=== PATIENT | male | born 1960 | race Caucasian/White ===

== ENCOUNTER 2020-12-30 15:17 | Observation (INO) ==
[2020-12-30] MEDS ORDERED: GLUCAGON 1 MG VIAL IM PRN (19:53)
[2020-12-30] MEDS ORDERED: DEXTROSE 50% 25 GM/50 ML VIAL IV PRN (19:53)
[2020-12-30 20:31] LABS: Basophils # 0.1 10*3/uL (0.0-0.2); Basophils % 0.5 % (0.0-0.8); Eosinophils # 0.8 10*3/uL (0.0-0.87); Eosinophils % 8.7 % (0.00-10.9); Hematocrit 39.5 VOL% (42.0-52.0); Hemoglobin 12.7 GM/DL (14.0-18.0); Immature Granulocytes % 0.2 %; Immature Granulocytes Absolute 0.02 #; Lymphocytes # 1.9 10*3/uL (1.4-4.0); Lymphocytes % 20.8 % (21.2-54.2); Mean Corpuscular HGB Conc 32.2 GM/DL (32-36); Mean Corpuscular Volume 87.8 FL (87-102); Mean Platelet Volume 9.9 FL (9.6-12.0); Monocytes % 6.5 % (1.7-12.7); Neutrophils % 63.3 % (38.7-73.9); Platelet Count 187 T/CUMM (130-400); White Blood Count 9.2 T/CUMM (4-12)
[2020-12-30 20:42] LABS: PT Patient Result 10.3 SECS (9.8-11.9)
[2020-12-30 20:49] LABS: Albumin 2.8 G/DL (3.4-5.0); Bilirubin,Total 0.6 MG/DL (0.2-1.0); Calcium 8.2 MG/DL (8.5-10.1); Osmolality,Calculated 291.5 MOS/KG (273-304); Potassium 4.8 MMOL/L (3.5-5.1); Total Protein 6.2 G/DL (6.4-8.2)
[2020-12-30] MEDS: LACTATED RINGERS 1,000 ML IV SCH (21:45)
[2020-12-30] MEDS: cefTRIAXone 1,000 MG in SYRINGE 1 EACH IV SCH (21:46)
[2020-12-30] MEDS: hydrALAZINE 25 MG TABLET PO SCH (21:46)
[2020-12-30] MEDS: ENOXAPARIN 30 MG/0.3 ML SYRINGE SUBCUT SCH (21:46)
[2020-12-30] MEDS: glipiZIDE 10 MG TABLET PO SCH (21:46)
[2020-12-30] MEDS: PANTOPRAZOLE 40 MG TABLET PO SCH (21:56)
[2020-12-30 23:57] LABS: Bacteria,Urine Occasional /HPF (Few); Bilirubin,Urine Negative (Negative); Blood, Urine Small mg/dL (Negative); Glucose,Urine (UA) >=500 mg/dL (Negative); Ketones,Urine Negative (Negative); Nitrite,Urine Negative (Negative); Protein,Urine 100 MG/DL; RBC,Urine 10 /HPF (0-4); Urine Appearance Slightly Hazy (Clear); Urine Color Yellow (Yellow); Urine Specific Gravity 1.009 (1.001-1.035); Urine Urobilinogen < 2.0 EU/DL (0.2-1.0); WBC,Urine 32 /HPF (0-6)
[2020-12-31] MEDS: INSULIN REGULAR 100 UNIT/ML SUBCUT SCH ×4 (00:34→17:38)
[2020-12-31 02:23] LABS: Basophils # 0.1 10*3/uL (0.0-0.2); Basophils % 0.7 % (0.0-0.8); Eosinophils # 0.7 10*3/uL (0.0-0.87); Eosinophils % 10.2 % (0.00-10.9); Hematocrit 37.2 VOL% (42.0-52.0); Hemoglobin 12.2 GM/DL (14.0-18.0); Immature Granulocytes % 0.3 %; Immature Granulocytes Absolute 0.02 #; Lymphocytes # 1.8 10*3/uL (1.4-4.0); Lymphocytes % 24.9 % (21.2-54.2); Mean Corpuscular HGB Conc 32.8 GM/DL (32-36); Mean Corpuscular Volume 87.1 FL (87-102); Mean Platelet Volume 10.4 FL (9.6-12.0); Monocytes % 7.7 % (1.7-12.7); Neutrophils % 56.2 % (38.7-73.9); Platelet Count 167 T/CUMM (130-400); Red Blood Count 4.27 MC/CUMM (3.8-5.5); Red Cell Distribution Width 13.9 % (9.3-17.3); White Blood Count 7.2 T/CUMM (4-12)
[2020-12-31 02:51] LABS: Albumin 2.6 G/DL (3.4-5.0); Bilirubin,Total 0.5 MG/DL (0.2-1.0); Calcium 8.3 MG/DL (8.5-10.1); Osmolality,Calculated 292.1 MOS/KG (273-304); Potassium 5.2 MMOL/L (3.5-5.1); Total Protein 5.8 G/DL (6.4-8.2)
[2020-12-31 02:52] LABS: Troponin I 0.845 NG/ML (0.00-0.045)
[2020-12-31] MEDS: LACTATED RINGERS 1,000 ML IV SCH ×3 (05:34→19:45)
[2020-12-31 05:53] LABS: Troponin I 0.877 NG/ML (0.00-0.045)
[2020-12-31 05:54] LABS: Risk Ratio 5.94; VLDL CHOLESTEROL 44.8 MG/DL
[2020-12-31] MEDS: hydrALAZINE 25 MG TABLET PO SCH ×2 (09:22→14:06)
[2020-12-31] MEDS: glipiZIDE 10 MG TABLET PO SCH ×2 (09:22→20:55)
[2020-12-31] MEDS: PANTOPRAZOLE 40 MG TABLET PO SCH (09:22)
[2020-12-31] MEDS: ASPIRIN EC 325 MG TABLET PO SCH (09:22)
[2020-12-31] MEDS: TAMSULOSIN 0.4 MG CAPSULE PO SCH (09:23)
[2020-12-31] MEDS ORDERED: MAGNESIUM SULF RIDER 2 GM in PREMIX 1 EACH IV ONE (13:22)
[2020-12-31] MEDS: cefTRIAXone 1,000 MG in SYRINGE 1 EACH IV SCH (20:54)
[2020-12-31] MEDS: ENOXAPARIN 30 MG/0.3 ML SYRINGE SUBCUT SCH (20:55)
[2020-12-31] MEDS ORDERED: ROSUVASTATIN 10 MG TABLET PO SCH (21:00)
[2021-01-01] MEDS: INSULIN REGULAR 100 UNIT/ML SUBCUT SCH ×3 (01:16→14:31)
[2021-01-01] MEDS: LACTATED RINGERS 1,000 ML IV SCH ×2 (05:40→14:45)
[2021-01-01 06:54] LABS: Risk Ratio 5.53; VLDL CHOLESTEROL 33.4 MG/DL
[2021-01-01 07:24] LABS: Calcium 8.5 MG/DL (8.5-10.1); Osmolality,Calculated 288.1 MOS/KG (273-304); Potassium 4.9 MMOL/L (3.5-5.1)
[2021-01-01] MEDS: TAMSULOSIN 0.4 MG CAPSULE PO SCH (08:55)
[2021-01-01] MEDS: glipiZIDE 10 MG TABLET PO SCH (08:55)
[2021-01-01] MEDS: PANTOPRAZOLE 40 MG TABLET PO SCH (08:55)
[2021-01-01] MEDS: ASPIRIN EC 325 MG TABLET PO SCH (08:55)
[2021-01-01] MEDS ORDERED: carvediloL 6.25 MG TABLET PO SCH (10:25)
[2021-01-01 12:14] VITALS: BP 133/76
== END 2021-01-01 14:30 | disposition home or self-care (01) ==
LOC: N.TELES → SUATTDRO 17:00
PROVIDERS: ADMIT Internal Medicine; ATTEND Phlebology

== ENCOUNTER 2022-03-05 10:44 | Inpatient (IN) ==
[2022-03-05] MEDS ORDERED: ALBUTEROL 2.5 MG/3 ML NEB RESP TX PRN (13:27)
[2022-03-05] MEDS ORDERED: NOREPINEPHRINE 8 MG in SODIUM CHLORIDE 0.9% 242 ML IV PRN (13:27)
[2022-03-05] MEDS ORDERED: DEXTROSE 50% 25 GM/50 ML SYRINGE IV ONE ×2 (13:30→13:39)
[2022-03-05 14:03] LABS: Basophils % 0.2 % (0.0-0.8); Hematocrit 26.1 VOL% (42.0-52.0); Hemoglobin 7.8 GM/DL (14.0-18.0); Immature Granulocytes % 0.9 %; Immature Granulocytes Absolute 0.14 #; Lymphocytes # 0.2 10*3/uL (1.4-4.0); Lymphocytes % 1.3 % (21.2-54.2); Mean Corpuscular HGB Conc 29.9 GM/DL (32-36); Mean Corpuscular Volume 89.7 FL (87-102); Mean Platelet Volume 10.3 FL (9.6-12.0); Monocytes # 0.2 10*3/uL (0.11-0.8); Monocytes % 1.4 % (1.7-12.7); Neutrophils % 96.2 % (38.7-73.9); Platelet Count 104 T/CUMM (130-400); Red Blood Count 2.91 MC/CUMM (3.8-5.5); Red Cell Distribution Width 16.6 % (9.3-17.3); White Blood Count 15.1 T/CUMM (4-12)
[2022-03-05 14:14] LABS: INR 1.2; PT Patient Result 13.5 SECS (10.5-12.0)
[2022-03-05 14:23] LABS: Band Neutrophils 22 % (0-10); Lymphocytes 1 % (20-55); Metamyelocytes 2 %; Total Cells Counted 100
[2022-03-05 14:24] LABS: Anisocytosis 1+; Burr Cells Few; Elliptocytes 1+; Schistocytes Few
[2022-03-05 14:25] LABS: Hypochromia Slight; Platelet Estimate Adequate; Polychromasia Few
[2022-03-05 14:27] LABS: Bilirubin,Total 0.6 MG/DL (0.20-1.00); Calcium 8.1 MG/DL (8.5-10.1); Osmolality,Calculated 295.5 MOS/KG (273-304); Total Protein 4.9 G/DL (6.4-8.2)
[2022-03-05] MEDS ORDERED: SODIUM CHLORIDE 0.9% 1,000 ML IV ONE (14:31)
[2022-03-05] MEDS ORDERED: MAGNESIUM SULF RIDER 2 GM/50 ML PREMIX IV ONE (14:31)
[2022-03-05] MEDS ORDERED: SODIUM CHLORIDE 0.9% 1,000 ML IV PRN (15:30)
[2022-03-05] MEDS ORDERED: LEVOFLOXACIN INJ 750 MG/150 ML PREMIX IV ONE (16:00)
[2022-03-05] MEDS: PANTOPRAZOLE 40 MG VIAL IV SCH (16:42)
[2022-03-05] MEDS: HYDROCORTISONE 100 MG VIAL IV SCH ×2 (16:46→21:20)
[2022-03-05] MEDS: ONDANSETRON 4 MG/2 ML VIAL IV PRN ×2 (17:46→23:57)
[2022-03-05 18:31] LABS: Arterial Base Excess iSTAT -13 MMOL/L (-2.5-2.5); Arterial Bicarbonate iSTAT 11.6 MMOL/L (20-26); Arterial O2 Saturation iSTAT 97 % (95-100); Arterial PCO2 iSTAT 22 MM HG (35-48); Arterial PO2 iSTAT 99 MM HG (80-95); Arterial Total CO2 iSTAT 12 MMO/L (23-27); Arterial pH iSTAT 7.336 (7.35-7.45)
[2022-03-05] MEDS ORDERED: FUROSEMIDE 40 MG/4 ML VIAL IV ONE (19:23)
[2022-03-05] MEDS ORDERED: DEXTROSE 10% 250 ML BAG IV PRN (19:34)
[2022-03-05 21:37] LABS: RBC,Urine 10 /HPF (0-4); Sperm,Urine Occasional /HPF (Negative); Squamous Epithelial Cell,Urine Occasional /HPF (0-10)
[2022-03-05 21:39] LABS: Glucose,Urine (UA) Negative (Negative); Ketones,Urine Negative (Negative); Nitrite,Urine Negative (Negative); Protein,Urine >=300 mg/dL (Negative); Urine Appearance Slightly Cloudy (Clear); Urine Color Yellow (Yellow); Urine Specific Gravity 1.025 (1.001-1.035)
[2022-03-05 21:40] LABS: Bilirubin,Urine Negative (Negative); Blood, Urine Moderate mg/dL (Negative); Urine Urobilinogen 0.2 eU/dL (<2.0)
[2022-03-06] MEDS: HYDROCORTISONE 100 MG VIAL IV SCH ×4 (03:33→21:42)
[2022-03-06 04:18] LABS: Basophils # 0.1 10*3/uL (0.0-0.2); Basophils % 0.3 % (0.0-0.8); Hematocrit 31.2 VOL% (42.0-52.0); Immature Granulocytes % 2.2 %; Immature Granulocytes Absolute 0.58 #; Lymphocytes # 0.6 10*3/uL (1.4-4.0); Lymphocytes % 2.1 % (21.2-54.2); Mean Corpuscular HGB Conc 30.1 GM/DL (32-36); Mean Corpuscular Volume 90.4 FL (87-102); Mean Platelet Volume 10.5 FL (9.6-12.0); Monocytes # 0.4 10*3/uL (0.11-0.8); Monocytes % 1.5 % (1.7-12.7); Neutrophils % 93.9 % (38.7-73.9); Platelet Count 122 T/CUMM (130-400); Red Blood Count 3.45 MC/CUMM (3.8-5.5); Red Cell Distribution Width 16.2 % (9.3-17.3); White Blood Count 26.7 T/CUMM (4-12)
[2022-03-06 04:24] LABS: Hemoglobin 9.4 GM/DL (14.0-18.0)
[2022-03-06 04:36] LABS: Calcium 8.3 MG/DL (8.5-10.1); Osmolality,Calculated 294.8 MOS/KG (273-304)
[2022-03-06 04:37] LABS: Band Neutrophils 5 % (0-10); Lymphocytes 2 % (20-55); Platelet Estimate Normal; Total Cells Counted 100
[2022-03-06 04:38] LABS: Burr Cells Slight; Hypochromia Slight
[2022-03-06 04:41] LABS: Potassium 6.3 MMOL/L (3.5-5.1)
[2022-03-06] MEDS ORDERED: INSULIN REGULAR 10 UNIT, CALCIUM GLUCONATE 1,000 MG in DEXTROSE 10% 250 ML IV ONE ×2 (05:30→18:44)
[2022-03-06] MEDS ORDERED: SODIUM CHLORIDE 0.9% 500 ML IV ONE (09:52)
[2022-03-06] MEDS ORDERED: SODIUM CHLORIDE 0.9% 1,000 ML IV SCH (10:00)
[2022-03-06] MEDS ORDERED: GLUCAGON 1 MG VIAL IM PRN (10:03)
[2022-03-06] MEDS ORDERED: DEXTROSE 10% 250 ML BAG IV PRN (10:03)
[2022-03-06] MEDS: SODIUM ZIRCONIUM CYCLOSILICATE 10 GM PACK PO SCH ×4 (10:50→21:41)
[2022-03-06] MEDS ORDERED: SODIUM BICARB INJ 150 MEQ in STERILE WATER INJ 850 ML IV SCH (11:00)
[2022-03-06] MEDS: SODIUM BICARB INJ 150 MEQ in STERILE WATER INJ 1,000 ML IV SCH (12:45)
[2022-03-06] MEDS: INSULIN LISPRO 100 UNIT/ML SUBCUT SCH ×3 (13:17→22:06)
[2022-03-06] MEDS ORDERED: LEVOFLOXACIN INJ 500 MG/100 ML PREMIX IV SCH (16:00)
[2022-03-06] MEDS: PANTOPRAZOLE 40 MG VIAL IV SCH (16:57)
[2022-03-06 17:31] LABS: Calcium 8.1 MG/DL (8.5-10.1)
[2022-03-06 17:34] LABS: Potassium 6.2 MMOL/L (3.5-5.1)
[2022-03-06] MEDS ORDERED: SODIUM POLYSTYRENE SULFATE 15 GM/60 ML BOTTLE PO ONE (18:45)
[2022-03-06] MEDS: MEROPENEM 500 MG in SODIUM CHLORIDE 0.9% 100 ML IV SCH (21:42)
[2022-03-06 22:24] LABS: Calcium 8.3 MG/DL (8.5-10.1); Osmolality,Calculated 294.8 MOS/KG (273-304); Potassium 4.7 MMOL/L (3.5-5.1)
[2022-03-06 23:06] VITALS: BP 117/79
[2022-03-07] MEDS: SODIUM BICARB INJ 150 MEQ in STERILE WATER INJ 1,000 ML IV SCH ×3 (00:43→21:29)
[2022-03-07] MEDS: HYDROCORTISONE 100 MG VIAL IV SCH ×3 (03:29→16:00)
[2022-03-07 04:05] LABS: Basophils % 0.1 % (0.0-0.8); Hemoglobin 9.1 GM/DL (14.0-18.0); Immature Granulocytes % 2.4 %; Immature Granulocytes Absolute 0.55 #; Lymphocytes # 0.8 10*3/uL (1.4-4.0); Lymphocytes % 3.5 % (21.2-54.2); Mean Corpuscular HGB Conc 31.4 GM/DL (32-36); Mean Corpuscular Volume 85.8 FL (87-102); Mean Platelet Volume 11.3 FL (9.6-12.0); Monocytes # 0.9 10*3/uL (0.11-0.8); Monocytes % 3.8 % (1.7-12.7); Neutrophils % 90.2 % (38.7-73.9); Platelet Count 120 T/CUMM (130-400); Red Blood Count 3.38 MC/CUMM (3.8-5.5); Red Cell Distribution Width 16.1 % (9.3-17.3)
[2022-03-07 04:23] LABS: Calcium 8.7 MG/DL (8.5-10.1); Osmolality,Calculated 292.8 MOS/KG (273-304); Potassium 4.4 MMOL/L (3.5-5.1)
[2022-03-07 04:36] LABS: Band Neutrophils 2 % (0-10); Lymphocytes 4 % (20-55); Total Cells Counted 100
[2022-03-07 04:37] LABS: Hypochromia Slight
[2022-03-07] MEDS: INSULIN LISPRO 100 UNIT/ML SUBCUT SCH ×4 (07:48→20:56)
[2022-03-07] MEDS: MEROPENEM 500 MG in SODIUM CHLORIDE 0.9% 100 ML IV SCH ×2 (08:45→20:56)
[2022-03-07] MEDS: SODIUM ZIRCONIUM CYCLOSILICATE 10 GM PACK PO SCH ×3 (09:00→20:56)
[2022-03-07] MEDS ORDERED: ZINC OXIDE PASTE 113 GM TUBE TOP PRN (14:59)
[2022-03-07] MEDS: PANTOPRAZOLE 40 MG VIAL IV SCH (15:45)
[2022-03-07] MEDS: carvediloL 3.125 MG TABLET PO SCH (17:04)
[2022-03-07] MEDS ORDERED: carvediloL 3.125 MG TABLET PO SCH (21:00)
[2022-03-07] MEDS ORDERED: diphenhydrAMINE CAP 25 MG CAPSULE PO ONE (21:16)
[2022-03-07] MEDS: BENZONATATE 100 MG CAPSULE PO PRN (21:29)
[2022-03-08] MEDS: HYDROCORTISONE 100 MG VIAL IV SCH ×3 (00:05→16:13)
[2022-03-08 04:02] LABS: Basophils % 0.1 % (0.0-0.8); Hematocrit 27.9 VOL% (42.0-52.0); Hemoglobin 8.9 GM/DL (14.0-18.0); Immature Granulocytes % 0.6 %; Lymphocytes # 0.6 10*3/uL (1.4-4.0); Lymphocytes % 3.9 % (21.2-54.2); Mean Corpuscular HGB Conc 31.9 GM/DL (32-36); Mean Corpuscular Volume 84.8 FL (87-102); Mean Platelet Volume 11.9 FL (9.6-12.0); Monocytes # 0.4 10*3/uL (0.11-0.8); Monocytes % 2.3 % (1.7-12.7); Neutrophils % 93.1 % (38.7-73.9); Platelet Count 107 T/CUMM (130-400); Red Blood Count 3.29 MC/CUMM (3.8-5.5); Red Cell Distribution Width 15.8 % (9.3-17.3); White Blood Count 16.2 T/CUMM (4-12)
[2022-03-08 04:17] LABS: Calcium 7.6 MG/DL (8.5-10.1); Osmolality,Calculated 302.5 MOS/KG (273-304); Potassium 2.7 MMOL/L (3.5-5.1)
[2022-03-08 04:49] LABS: Hypochromia Slight; Lymphocytes 4 % (20-55); Microcytosis Slight; Total Cells Counted 100
[2022-03-08] MEDS: POTASSIUM CHLORIDE 20 MEQ TABLET PO PRN ×4 (05:05→19:01)
[2022-03-08] MEDS: INSULIN LISPRO 100 UNIT/ML SUBCUT SCH ×4 (08:11→21:41)
[2022-03-08] MEDS: MEROPENEM 500 MG in SODIUM CHLORIDE 0.9% 100 ML IV SCH (08:45)
[2022-03-08] MEDS: SODIUM ZIRCONIUM CYCLOSILICATE 10 GM PACK PO SCH (08:46)
[2022-03-08] MEDS: ASPIRIN EC 325 MG TABLET PO SCH (08:46)
[2022-03-08] MEDS: carvediloL 3.125 MG TABLET PO SCH (08:47)
[2022-03-08] MEDS: CLOPIDOGREL 75 MG TABLET PO SCH (08:47)
[2022-03-08] MEDS: TAMSULOSIN 0.4 MG CAPSULE PO SCH (09:30)
[2022-03-08] MEDS: SODIUM BICARB INJ 150 MEQ in STERILE WATER INJ 1,000 ML IV SCH (10:00)
[2022-03-08] MEDS ORDERED: ERTAPENEM 500 MG in SODIUM CHLORIDE 0.9% 100 ML IV SCH (12:00)
[2022-03-08] MEDS: BENZONATATE 100 MG CAPSULE PO PRN (16:14)
[2022-03-08 18:04] LABS: Calcium 7.2 MG/DL (8.5-10.1); Osmolality,Calculated 302.5 MOS/KG (273-304)
[2022-03-08] MEDS ORDERED: diphenhydrAMINE CAP 25 MG CAPSULE PO PRN (22:17)
[2022-03-09] MEDS: HYDROCORTISONE 100 MG VIAL IV SCH ×2 (00:16→08:55)
[2022-03-09 04:23] LABS: Basophils % 0.1 % (0.0-0.8); Hematocrit 28.9 VOL% (42.0-52.0); Hemoglobin 9.3 GM/DL (14.0-18.0); Immature Granulocytes % 0.7 %; Immature Granulocytes Absolute 0.11 #; Lymphocytes # 0.6 10*3/uL (1.4-4.0); Lymphocytes % 3.8 % (21.2-54.2); Mean Corpuscular HGB Conc 32.2 GM/DL (32-36); Mean Corpuscular Volume 85.5 FL (87-102); Mean Platelet Volume 11.7 FL (9.6-12.0); Monocytes # 0.4 10*3/uL (0.11-0.8); Monocytes % 2.1 % (1.7-12.7); Neutrophils % 93.3 % (38.7-73.9); Platelet Count 109 T/CUMM (130-400); Red Blood Count 3.38 MC/CUMM (3.8-5.5); Red Cell Distribution Width 15.7 % (9.3-17.3); White Blood Count 16.8 T/CUMM (4-12)
[2022-03-09 04:50] LABS: Calcium 7.1 MG/DL (8.5-10.1); Osmolality,Calculated 306.5 MOS/KG (273-304); Potassium 2.9 MMOL/L (3.5-5.1)
[2022-03-09 04:53] LABS: Lymphocytes 3 % (20-55); Microcytosis Slight; Ovalocytes Slight; Platelet Estimate Decreased; Total Cells Counted 100
[2022-03-09] MEDS: POTASSIUM CHLORIDE 20 MEQ TABLET PO PRN (05:54)
[2022-03-09] MEDS: INSULIN LISPRO 100 UNIT/ML SUBCUT SCH (07:08)
[2022-03-09] MEDS: CLOPIDOGREL 75 MG TABLET PO SCH (09:00)
[2022-03-09] MEDS: carvediloL 3.125 MG TABLET PO SCH (09:00)
[2022-03-09] MEDS: ASPIRIN EC 325 MG TABLET PO SCH (09:00)
[2022-03-09] MEDS ORDERED: FOSFOMYCIN 3 GM PACK PO ONE (09:00)
[2022-03-09] MEDS: TAMSULOSIN 0.4 MG CAPSULE PO SCH (09:00)
[2022-03-09] MEDS ORDERED: HYDROCORTISONE 100 MG VIAL IV SCH (11:00)
== END 2022-03-09 11:50 | disposition hospice, home (50) | DRG 872 ==
LOC: N.ICU → OBSVTOIN 15:26 → SUATTDRO 15:26
PROVIDERS: ADMIT Internal Medicine; ATTEND Internal Medicine